=== PATIENT | female | born 1980 | race African-American/Black ===

== ENCOUNTER 2021-08-24 19:27 | Inpatient (IN) | payer MEDICAID ==
[~2021-08-24] VITALS: Ht 170.2 cm; Wt 91.7 kg
[~2021-08-24 19:27] MED LIST: ALBU0.084 NEB; ALBU18 IN; ALBUAER3 IN; COLC1TAB3 PO; LEV500T PO; MECL12.5 PO
[2021-08-24] MEDS ORDERED: NITROGLYCERIN 0.4 MG SL TAB SL ONE (21:00)
[2021-08-24] MEDS ORDERED: ALBUTEROL SULF 2.5 MG/0.5ML(0.5%) NEB SOLN NEB ONE (21:00)
[2021-08-24] MEDS ORDERED: IPRATROPIUM BROM 0.5 MG/2.5ML INH SOL NEB ONE (21:00)
[2021-08-24] MEDS ORDERED: methylPREDNISolone SOD SUCC 125 MG/2 ML VL IV ONE (21:00)
[2021-08-24 21:42] LABS: Basophils # (auto) 0.1 10 ^3/uL (0-0.2); Basophils % (auto) 1.9 % (0.0-2.0); Eosinophils # (auto) 0.3 10 ^3/uL (0-0.8); Eosinophils % (auto) 4.2 % (0.0-7.0); Hematocrit 41.3 % (36.0-46.0); Lymphocytes # (auto) 3.1 10 ^3/uL (0.4-5.4); Lymphocytes % (auto) 44.6 % (10.0-50.0); Mean Corpuscular Hemoglobin 29.5 pg (28.0-32.0); Mean Corpuscular Hgb Conc. 33.9 g/dL (32.0-36.0); Monocytes # (auto) 0.5 10 ^3/uL (0-1.3); Monocytes % (auto) 7.5 % (0.0-12.0); Neutrophils # (auto) 2.9 10 ^3/uL (1.6-8.6); Neutrophils % (auto) 41.8 % (37.0-80.0); Red Blood Cells 4.75 10^6/uL (4.0-5.20); Red Cell Distribution Width 13.6 % (11.8-14.3); White Blood Cell 6.9 10^3/uL (4.4-10.8)
[2021-08-24 21:49] LABS: Potassium 3.5 mmol/L (3.5-5.1)
[2021-08-24 21:50] LABS: Albumin 3.3 g/dL (3.4-5.0); Calcium 8.6 mg/dL (8.5-10.1)
[2021-08-24 21:52] LABS: Bilirubin, Total 0.2 mg/dL (0.2-1.0); Total Protein 8.1 g/dL (6.4-8.2)
[2021-08-24] MEDS ORDERED: ONDANSETRON HCL 4 MG/2 ML VIAL IV PRN (22:45)
[2021-08-24] MEDS ORDERED: ACETAMINOPHEN 325 MG TAB PO PRN (22:45)
[2021-08-24] MEDS ORDERED: AZITHROMYCIN 500MG/ 250ML 250 ML IV ONE (22:45)
[2021-08-24] MEDS ORDERED: DOCUSATE SOD 100 MG CAP PO PRN (22:45)
[2021-08-24] MEDS ORDERED: MORPHINE SULFATE INJ 2 MG/ml SYRG IV PRN (22:45)
[2021-08-24 23:23] VITALS: BP 115/84
[2021-08-25] MEDS: SODIUM CHLORIDE 0.9% 1,000 ML IV SCH ×2 (01:16→15:31)
[2021-08-25 02:15] LABS: Urine Bacteria NONE SEEN /hpf (None Seen); Urine Blood Negative /uL (Negative); Urine Mucus FEW (None Seen); Urine Specific Gravity 1.027 (1.001-1.035); Urine WBC 3 /hpf (0 - 5)
[2021-08-25] MEDS ORDERED: NITROGLYCERIN 0.4 MG SL TAB SL PRN (02:30)
[2021-08-25] MEDS ORDERED: MORPHINE SULFATE INJ 2 MG/ml SYRG IV PRN (02:30)
[2021-08-25] MEDS: ALBUTEROL SULF 2.5 MG/0.5ML(0.5%) NEB SOLN NEB PRN ×3 (04:52→18:35)
[2021-08-25] MEDS: IPRATROPIUM BROM 0.5 MG/2.5ML INH SOL NEB PRN ×3 (04:53→18:35)
[2021-08-25] MEDS: methylPREDNISolone SOD SUCC 40 MG/ML VL IV SCH ×3 (06:20→21:36)
[2021-08-25 07:11] LABS: Hematocrit 37.2 % (36.0-46.0); Hemoglobin 12.7 g/dL (12.2-16.2); Mean Corpuscular Hemoglobin 29.4 pg (28.0-32.0); Mean Corpuscular Hgb Conc. 34.1 g/dL (32.0-36.0); Mean Corpuscular Volume 86.3 fL (80.0-100.0); Red Blood Cells 4.31 10^6/uL (4.0-5.20); Red Cell Distribution Width 13.4 % (11.8-14.3); White Blood Cell 6.7 10^3/uL (4.4-10.8)
[2021-08-25 07:16] LABS: Band Neutrophils % (manual) 0; Basophils % (manual) 0 (0.0-2.0); Blast Cells 0; Metamyelocytes % 0; Myelocytes % 0; Promyelocytes % 0; Reactive Lymphocytes 0
[2021-08-25 07:26] LABS: Albumin 3.2 g/dL (3.4-5.0); Potassium 4.2 mmol/L (3.5-5.1)
[2021-08-25 07:30] LABS: BUN/Creatinine Ratio 13.6; Bilirubin, Total 0.2 mg/dL (0.2-1.0); Total Protein 7.4 g/dL (6.4-8.2)
[2021-08-25 07:41] LABS: Eosinophils % (manual) 1 (0-7); Lymphocytes % (manual) 11 (10.0-50.0); Monocytes % (manual) 3 (0-12)
[2021-08-25] MEDS: FAMOTIDINE (10MG/ML) 2ML VL IV SCH ×2 (10:13→21:35)
[2021-08-25] MEDS: ENOXAPARIN SOD 40 MG/0.4 ML SYRINGE SC SCH (10:13)
[2021-08-25] MEDS: ASPirin 81 mg TAB PO SCH (10:13)
[2021-08-25] MEDS: HYDROcodone-ACET 5/325MG TAB PO PRN (12:15)
[2021-08-25 13:41] LABS: Alcohol, Urine < 3.0 mg/dL (0-10); Amphetamine Screen, Urine NEGATIVE (NEGATIVE); Barbiturate Scree,Urine NEGATIVE (NEGATIVE); Benzodiazephine Screen, Urine NEGATIVE (NEGATIVE); Cannabinoid Screen, Urine NEGATIVE (NEGATIVE); Cocaine Screen, Urine NEGATIVE (NEGATIVE); Opiate Scree,Urine NEGATIVE (NEGATIVE); Phencyclidine Screen, Urine NEGATIVE (NEGATIVE)
[2021-08-25 17:22] VITALS: BP 126/62
[2021-08-25] MEDS ORDERED: MONT-8 PO (18:11)
[2021-08-25] MEDS ORDERED: ZOLPIDEM TARTRATE 5 MG TAB PO PRN (19:45)
[2021-08-25] MEDS: PROMETHAZINE W/CODEINE 5 ML ORAL SYRUP PO PRN (21:23)
[2021-08-25 22:00] VITALS: BP 108/62
[2021-08-25] MEDS ORDERED: AZITHROMYCIN 500MG/ 250ML 250 ML IV SCH (22:00)
[2021-08-26 05:00] VITALS: BP 93/59
[2021-08-26] MEDS: ALBUTEROL SULF 2.5 MG/0.5ML(0.5%) NEB SOLN NEB SCH ×2 (06:07→11:50)
[2021-08-26] MEDS: IPRATROPIUM BROM 0.5 MG/2.5ML INH SOL NEB SCH ×2 (06:07→11:50)
[2021-08-26] MEDS: methylPREDNISolone SOD SUCC 40 MG/ML VL IV SCH (07:05)
[2021-08-26 08:00] VITALS: BP 110/59
[2021-08-26] MEDS: FAMOTIDINE (10MG/ML) 2ML VL IV SCH (08:53)
[2021-08-26] MEDS: ENOXAPARIN SOD 40 MG/0.4 ML SYRINGE SC SCH (08:54)
[2021-08-26] MEDS: PROMETHAZINE W/CODEINE 5 ML ORAL SYRUP PO PRN (08:54)
[2021-08-26] MEDS: ASPirin 81 mg TAB PO SCH (08:54)
[2021-08-26] MEDS: HYDROcodone-ACET 5/325MG TAB PO PRN (08:54)
[2021-08-26 12:00] VITALS: BP 106/54
[2021-08-26] MEDS ORDERED: AZIT500T66 PO (12:18)
[2021-08-26] MEDS ORDERED: ALBUAER3 IN (12:18)
[2021-08-26] MEDS ORDERED: PRED20TA2 PO (12:18)
[2021-08-26 13:40] VITALS: BP 100/74
== END 2021-08-26 15:50 | disposition home or self-care (01) | DRG 139 ==
LOC: ER 19:27 → TELE 08-25 02:30 → TELE-EAST 08-25 17:17
PROVIDERS: ADMIT Nurse Practitioner Family; ATTEND Family Medicine
PROC: 05HY33Z Insertion of Infusion Device into Upper Vein, Percutaneous Approach (ICD-10-PCS; principal; 2021-08-25)
DX: J18.9 Pneumonia, unspecified organism (principal); I24.9 Acute ischemic heart disease, unspecified; J45.901 Unspecified asthma with (acute) exacerbation; E66.01 Morbid (severe) obesity due to excess calories; Z20.822 Contact with and (suspected) exposure to COVID-19; F17.200 Nicotine dependence, unspecified, uncomplicated; Z68.33 Body mass index [BMI] 33.0-33.9, adult; R06.03 Acute respiratory distress; Z71.6 Tobacco abuse counseling
CPT/HCPCS: 36415; 71045; 80053; 80307; 81001; 84443; 84484; 84702; 85007; 85025; 85027; 93005; 93306; 94640; 96361; 96365; 96372; 96375; G0378; J3490

== ENCOUNTER 2022-02-17 23:00 | Emergency (ER) | payer MEDICAID ==
[~2022-02-17] VITALS: Ht 170.2 cm; Wt 208.0 kg
[~2022-02-17 23:00] MED LIST changes: +AZIT500T66 PO; +MONT-8 PO; +PRED20TA2 PO
[2022-02-17 23:21] VITALS: BP 122/96
[2022-02-18 00:16] LABS: Hematocrit 38.2 % (36.0-46.0); Hemoglobin 12.4 g/dL (12.2-16.2); Mean Corpuscular Hemoglobin 27.9 pg (28.0-32.0); Mean Corpuscular Hgb Conc. 32.4 g/dL (32.0-36.0); Red Blood Cells 4.45 10^6/uL (4.0-5.20); White Blood Cell 3.6 10^3/uL (4.4-10.8)
[2022-02-18 00:24] LABS: Band Neutrophils % (manual) 0; Basophils % (manual) 0 (0.0-2.0); Blast Cells 0; Eosinophils % (manual) 0 (0-7); Metamyelocytes % 0; Myelocytes % 0; Promyelocytes % 0; Reactive Lymphocytes 0
[2022-02-18 00:33] LABS: Albumin 2.9 g/dL (3.4-5.0); BUN/Creatinine Ratio 13.9; Calcium 8.4 mg/dL (8.5-10.1); Potassium 3.3 mmol/L (3.5-5.1)
[2022-02-18 00:36] LABS: Bilirubin, Total 0.4 mg/dL (0.2-1.0); Total Protein 6.5 g/dL (6.4-8.2)
[2022-02-18 00:53] LABS: Lymphocytes % (manual) 76 (10.0-50.0); Monocytes % (manual) 4 (0-12)
== END 2022-02-18 06:12 | disposition left against medical advice (07) ==
LOC: ER 23:00
DX: R05.9 Cough, unspecified (principal); E87.6 Hypokalemia; D64.9 Anemia, unspecified; E87.8 Other disorders of electrolyte and fluid balance, not elsewhere classified; R73.9 Hyperglycemia, unspecified; J45.909 Unspecified asthma, uncomplicated; R07.89 Other chest pain
CPT/HCPCS: 36415; 71045; 80053; 84484; 85007; 85027; 93005